=== PATIENT | male | born 1960 | race Caucasian/White ===

== ENCOUNTER 2021-06-12 14:41 | Emergency (ER) | payer BC ==
[2021-06-12] MEDS ORDERED: Sodium Chloride 0.9% 10 ML Syringe FLUSH PRN (15:02)
[2021-06-12] MEDS ORDERED: Sodium Chloride 0.9% 2.5 ML Syringe FLUSH PRN (15:02)
[2021-06-12 15:03] VITALS: BP 168/102; PULSE 116
[2021-06-12] MEDS ORDERED: Morphine 4 MG/ML Syringe IVPUSH ONE (15:07)
[2021-06-12] MEDS ORDERED: Cefepime 2 GM in Premix Bag 1 BAG IV ONE (15:20)
[2021-06-12] MEDS ORDERED: Acetaminophen 500 MG Tab PO ONE (15:21)
--- NOTE | 2021-06-12 15:26 | EDM.PDOC ---
ED HPI GENERAL MEDICAL PROBLEM - General Chief Complaint: Chest Pain Stated Complaint: CHEST PAIN Time Seen by Provider: 06/12/21 14:53 Source of Information: Reports: Patient - History of Present Illness INITIAL COMMENTS - FREE TEXT/NARRATIVE: 60-year-old male history of hypertension presents to the emergency department complaining of chest pain. It is left anterior chest and radiates down his left arm to his neck between his shoulder blades. Is been there for about 2 days in duration. Patient has had some cough. Patient denies any fever. No productive sputum. Patient states that he had an exposure to Covid in August and did test positive at one point although he was not symptomatic. He is not vaccinated. His had Covid in September. Patient denies any history of blood clots. No unilateral leg swelling. No recent travel or injury or cancer or surgery. Pain is also sharp. There are no known exacerbating or alleviating factors of his 10 out of 10 pain. Patient denies worsening pain with ambulation or with inspiration. No vomiting or diarrhea or other infectious symptoms patient states he had an angiogram about 2 years ago and he thinks it was okay. Left arm and chest Pain Score (Numeric/FACES): 10 - Related Data Allergies Allergy/AdvReac Type Severity Reaction Status Date / Time codeine Allergy migriane Verified 06/12/21 14:53 Penicillins Allergy Rash Verified 06/12/21 14:53 Home Meds: Home Meds Aspirin [Halfprin] 81 mg PO DAILY 30 Days #30 tab.ec 09/09/18 [Rx] Valsartan/Hydrochlorothiazide [Valsartan-Hctz 80-12.5 mg Tab] 1 each PO DAILY 30 Days #30 tablet 09/09/18 [Rx] atorvaSTATin [Lipitor] 20 mg PO BEDTIME 30 Days #30 tablet 09/09/18 [Rx] Levofloxacin [Levaquin] 500 mg PO DAILY #10 tablet 06/12/21 [Rx] Past Medical History HEENT History: Reports: None Cardiovascular History: Reports: High Cholesterol, Hypertension Respiratory History: Reports: None Gastrointestinal History: Reports: None Genitourinary History: Reports: None Musculoskeletal History: Reports: None Other Neuro History: Paresthesias Psychiatric History: Reports: None Endocrine/Metabolic History: Reports: None Hematologic History: Reports: None Immunologic History: Reports: None Oncologic (Cancer) History: Reports: None Dermatologic History: Reports: None - Infectious Disease History Infectious Disease History: Reports: Chicken Pox - Past Surgical History Cardiovascular Surgical History: Reports: None GI Surgical History: Reports: Cholecystectomy Social & Family History - Family History Family Medical History: No Pertinent Family History - Caffeine Use Caffeine Use: Reports: Coffee Caffeine Use Comment: 1 cup/day - Recreational Drug Use Recreational Drug Use: No ED ROS GENERAL - Review of Systems Review Of Systems: See Below Constitutional: Denies: Fever, Chills Respiratory: Reports: Shortness of Breath, Cough. Denies: Sputum Cardiovascular: Reports: Chest Pain, Lightheadedness GI/Abdominal: Reports: Other (Plus or minus abdominal pain but the focus of his complaints are in his chest). Denies: Black Stool, Bloody Stool Musculoskeletal: Reports: Neck Pain, Shoulder Pain Skin: Denies: Bruising Neurological: Reports: Other (Seizures to the left arm). Denies: Headache Hematologic/Lymphatic: Denies: Easy Bruising ED EXAM, GENERAL - Physical Exam Exam: See Below Free Text/Narrative:: CONSTITUTIONAL: well appearing in no acute distress SKIN: Warm, dry, and intact without rash HENT: Normocephalic, atraumatic, PULMONARY: clear to ausculation bilaterally. No rales, rhonchi, wheezing CARDIOVASCULAR: Cardia. No murmurs or rubs or gallops GASTROINTESTINAL: soft, nondistended, nontender NEUROLOGIC: normal speech, II-XII intact. light touch/5/5 power equal and symmetric in upper and lower extremities without deficit MUSCULOSKELETAL: no gross deformities, atraumatic PSYCHIATRIC: normal mood and affect #1 Interpretation EKG Date: 06/12/21 Time: 15:26 EKG Interpretation Comments: 112, sinus tachycardia, nonspecific ST/T findings Course - Vital Signs Text/Narrative:: Differential diagnosis: ACS, PE, aortic dissection, pneumonia, pancreatitis, pyelonephritis, other Patient presents to the emergency department as outlined above. Patient febrile with chest pain radiating to the back. Patient fortunately CT scan of the chest shows no evidence of any aortic dissection or PE but it does show some evidence of calcifications in the renal collecting system. Patient has neutropenia and with high fevers concern would be for an infected stone with impending urosepsis and deterioration. Patient at this time declines further testing and intervention. Patient will not at this time provide a urine sample and he states he will follow-up with his provider in the short-term. Later in the ED course the states the patient has had chest pain evaluated several times in the past and he has a history of anxiety. She is commenting that in her opinion she does not think the CAT scan was necessary. She states the patient's grand daughter had a viral infection recently. With this new information later in the emergency department course I still cannot exclude underlying serious infection. Patient is with leukopenia and high fever and with evidence of calcifications in the renal collecting system with back pain I certainly cannot exclude underlying serious or life-threatening infection. This was discussed with both the patient and his . Pt alert and oriented. Pt understandings risks of significant morbidity and/or mortality. Pt is able to discuss illustrating understanding. Pt has capacity to make own decisions and is signing out against medical advice. Last Recorded V/S: Last Vital Signs Temp 38.6 C H 06/12/21 15:37 Pulse 116 H 06/12/21 14:54 Resp 19 06/12/21 14:54 BP 168/102 H 06/12/21 14:54 Pulse Ox 95 06/12/21 14:54 - Orders/Labs/Meds Orders: Active Orders 24 hr Category Date Time Status Cardiac Monitoring [RC] . DIRECTED Care 06/12/21 15:02 Active EKG 12 Lead [EKG Documentation Completion] [RC] STAT Care 06/12/21 17:05 Active Pulse Oximetry [RC] ASDIRECTED Care 06/12/21 15:02 Active CULTURE BLOOD [BC] Stat Lab 06/12/21 15:14 Received CULTURE BLOOD [BC] Stat Lab 06/12/21 15:16 Received UA W/MICROSCOPIC [URIN] Stat Lab 06/12/21 17:10 Ordered Lactated Ringers [Ringers, Lactated] 2,000 ml Med 06/12/21 17:30 Active IV ASDIRECTED Sodium Chloride 0.9% [Saline Flush] Med 06/12/21 15:02 Active 10 ml FLUSH ASDIRECTED PRN Sodium Chloride 0.9% [Saline Flush] Med 06/12/21 15:02 Active 2.5 ml FLUSH ASDIRECTED PRN Blood Culture x2 Reflex Set [OM.PC] Stat Oth 06/12/21 15:03 Ordered Isolation [COMM] Routine Oth 06/12/21 15:04 Active Saline Lock Insert [OM.PC] Stat Oth 06/12/21 15:02 Ordered Medication Orders Lactated Ringer's (Ringers, Lactated) 2,000 mls @ 99,999 mls/min IV ASDIRECTED JENNIFER Sodium Chloride (Sodium Chloride 0.9% 10 Ml Syringe) 10 ml FLUSH ASDIRECTED PRN PRN Reason: Keep Vein Open Last Admin: 06/12/21 15:40 Dose: 10 ml Documented by: ARA Sodium Chloride (Sodium Chloride 0.9% 2.5 Ml Syringe) 2.5 ml FLUSH ASDIRECTED PRN PRN Reason: Keep Vein Open Last Admin: 06/12/21 15:40 Dose: 2.5 ml Documented by: ARA Labs: Laboratory Tests 06/12/21 06/12/21 06/12/21 Range/Units 14:47 14:47 14:47 WBC 2.97 L (4.0-11.0) K/uL RBC 4.92 (4.50-5.90) M/uL Hgb 15.6 (13.0-17.0) g/dL Hct 44.8 (38.0-50.0) % MCV 91.1 (80.0-98.0) fL MCH 31.7 (27.0-32.0) pg MCHC 34.8 (31.0-37.0) g/dL RDW Std Deviation 42.9 (28.0-62.0) fl RDW Coeff of Kt 13 (11.0-15.0) % Plt Count 155 (150-400) K/uL MPV 11.30 (7.40-12.00) fL Neut % (Auto) 63.3 (48.0-80.0) % Lymph % (Auto) 19.9 (16.0-40.0) % [place] % (Auto) 16.5 H (0.0-15.0) % Eos % (Auto) 0.0 (0.0-7.0) % Baso % (Auto) 0.3 (0.0-1.5) % Neut # (Auto) 1.9 (1.4-5.7) K/uL Lymph # (Auto) 0.6 (0.6-2.4) K/uL [place] # (Auto) 0.5 (0.0-0.8) K/uL Eos # (Auto) 0.0 (0.0-0.7) K/uL Baso # (Auto) 0.0 (0.0-0.1) K/uL Nucleated RBC % 0.0 /100WBC Nucleated RBCs # 0 K/uL INR D-Dimer, Quantitative 1.12 H (0.0-0.50) mg/L FEU Sodium 133 L (136-148) mmol/L Potassium 3.8 (3.5-5.1) mmol/L Chloride 98 (98-107) mmol/L Carbon Dioxide 28.1 (21.0-32.0) mmol/L BUN 11 (7.0-18.0) mg/dL Creatinine 1.3 (0.8-1.3) mg/dL Est Cr Clr Drug Dosing 69.38 mL/min Estimated GFR (MDRD) 56.1 ml/min Glucose 98 (74-106) mg/dL Lactic Acid (0.4-2.0) mmol/L Calcium 8.5 (8.5-10.1) mg/dL Total Bilirubin 1.7 H (0.2-1.0) mg/dL AST 31 (15-37) IU/L ALT 44 (14-63) IU/L Alkaline Phosphatase 109 (46-116) U/L Troponin I < 0.050 (0.000-0.056) ng/mL Total Protein 8.2 (6.4-8.2) g/dL Albumin 4.3 (3.4-5.0) g/dL Globulin 3.9 (2.6-4.0) g/dL Albumin/Globulin Ratio 1.1 (0.9-1.6) Lipase 60 L (73-393) U/L Influenza Type A RNA (NEGATIVE) Influenza Type B RNA (NEGATIVE) SARS-CoV-2 RNA ([place]) (NEGATIVE) 06/12/21 06/12/21 06/12/21 Range/Units 14:47 15:14 16:09 WBC (4.0-11.0) K/uL RBC (4.50-5.90) M/uL Hgb (13.0-17.0) g/dL Hct (38.0-50.0) % MCV (80.0-98.0) fL MCH (27.0-32.0) pg MCHC (31.0-37.0) g/dL RDW Std Deviation (28.0-62.0) fl RDW Coeff of Kt (11.0-15.0) % Plt Count (150-400) K/uL MPV (7.40-12.00) fL Neut % (Auto) (48.0-80.0) % Lymph % (Auto) (16.0-40.0) % [place] % (Auto) (0.0-15.0) % Eos % (Auto) (0.0-7.0) % Baso % (Auto) (0.0-1.5) % Neut # (Auto) (1.4-5.7) K/uL Lymph # (Auto) (0.6-2.4) K/uL [place] # (Auto) (0.0-0.8) K/uL Eos # (Auto) (0.0-0.7) K/uL Baso # (Auto) (0.0-0.1) K/uL Nucleated RBC % /100WBC Nucleated RBCs # K/uL INR 1.06 D-Dimer, Quantitative (0.0-0.50) mg/L FEU Sodium (136-148) mmol/L Potassium (3.5-5.1) mmol/L Chloride (98-107) mmol/L Carbon Dioxide (21.0-32.0) mmol/L BUN (7.0-18.0) mg/dL Creatinine (0.8-1.3) mg/dL Est Cr Clr Drug Dosing mL/min Estimated GFR (MDRD) ml/min Glucose (74-106) mg/dL Lactic Acid 1.2 (0.4-2.0) mmol/L Calcium (8.5-10.1) mg/dL Total Bilirubin (0.2-1.0) mg/dL AST (15-37) IU/L ALT (14-63) IU/L Alkaline Phosphatase (46-116) U/L Troponin I (0.000-0.056) ng/mL Total Protein (6.4-8.2) g/dL Albumin (3.4-5.0) g/dL Globulin (2.6-4.0) g/dL Albumin/Globulin Ratio (0.9-1.6) Lipase (73-393) U/L Influenza Type A RNA NEGATIVE (NEGATIVE) Influenza Type B RNA NEGATIVE (NEGATIVE) SARS-CoV-2 RNA ([place]) NEGATIVE (NEGATIVE) Meds: Medications Generic Name Dose Route Start Last Admin Trade Name Freq PRN Reason Stop Dose Admin Lactated Ringer's 2,000 mls @ 99,999 mls/min 06/12/21 17:30 Ringers, Lactated IV ASDIRECTED JENNIFER Sodium Chloride 10 ml 06/12/21 15:02 06/12/21 15:40 Sodium Chloride 0.9% 10 Ml Syringe FLUSH 10 ml ASDIRECTED PRN Administration Keep Vein Open Sodium Chloride 2.5 ml 06/12/21 15:02 06/12/21 15:40 Sodium Chloride 0.9% 2.5 Ml Syringe FLUSH 2.5 ml ASDIRECTED PRN Administration Keep Vein Open Discontinued Medications Generic Name Dose Route Start Last Admin Trade Name Freq PRN Reason Stop Dose Admin Acetaminophen 1,000 mg 06/12/21 15:21 06/12/21 15:37 Acetaminophen 500 Mg Tab PO 06/12/21 15:22 1,000 mg ONETIME ONE Administration Cefepime HCl 2 gm/ Premix 50 mls @ 100 mls/hr 06/12/21 15:20 06/12/21 15:40 IV 06/12/21 15:49 100 mls/hr ONETIME ONE Administration Lactated Ringer's 1,000 mls @ 999 mls/hr 06/12/21 15:36 06/12/21 15:38 Ringers, Lactated IV 06/12/21 16:36 999 mls/hr ONETIME ONE Administration Morphine Sulfate 4 mg 06/12/21 15:07 06/12/21 15:37 Morphine 4 Mg/Ml Syringe IVPUSH 06/12/21 15:08 4 mg ONETIME ONE Administration Departure - Departure Time of Disposition: 18:33 Disposition: Against Medical Advice 07 Condition: Fair Clinical Impression: Chest pain, Febrile illness - Discharge Information Prescriptions: Levofloxacin [Levaquin] 500 mg PO DAILY #10 tablet Referrals: Jony Luis MD [Primary Care Provider] - Forms: ED Department Discharge Additional Instructions: Return for increasing chest pain or shortness of breath or fever or lightheadedness or change or worsening condition or if you change your mind and would like to be managed and treated in the hospital. Antibiotics as prescribed to cover in the event that there is a urinary tract infection. Please take a copy of all your laboratory tests as well as CT scan to the primary care doctor soon as you can for continued treatment and evaluation. As mentioned there may be concern for kidney stones that could be infected Sepsis Event Note (ED) - Evaluation Sepsis Screening Result: Possible Sepsis Risk - Focused Exam Vital Signs: Vital Signs Temp Temp Pulse Resp BP Pulse Ox 06/12/21 15:37 38.6 C H 06/12/21 14:54 38.4 C H 116 H 19 168/102 H 95 - My Orders Last 24 Hours: My Active Orders 06/12/21 15:02 Cardiac Monitoring [RC] . DIRECTED Pulse Oximetry [RC] ASDIRECTED Sodium Chloride 0.9% [Saline Flush] 10 ml FLUSH ASDIRECTED PRN Sodium Chloride 0.9% [Saline Flush] 2.5 ml FLUSH ASDIRECTED PRN Saline Lock Insert [OM.PC] Stat 06/12/21 15:03 Blood Culture x2 Reflex Set [OM.PC] Stat 06/12/21 15:04 Isolation [COMM] Routine 06/12/21 15:14 CULTURE BLOOD [BC] Stat 06/12/21 15:16 CULTURE BLOOD [BC] Stat 06/12/21 17:05 EKG 12 Lead [EKG Documentation Completion] [RC] STAT 06/12/21 17:10 UA W/MICROSCOPIC [URIN] Stat 06/12/21 17:30 Lactated Ringers [Ringers, Lactated] 2,000 ml IV ASDIRECTED - Assessment/Plan Last 24 Hours: My Active Orders 06/12/21 15:02 Cardiac Monitoring [RC] . DIRECTED Pulse Oximetry [RC] ASDIRECTED Sodium Chloride 0.9% [Saline Flush] 10 ml FLUSH ASDIRECTED PRN Sodium Chloride 0.9% [Saline Flush] 2.5 ml FLUSH ASDIRECTED PRN Saline Lock Insert [OM.PC] Stat 06/12/21 15:03 Blood Culture x2 Reflex Set [OM.PC] Stat 06/12/21 15:04 Isolation [COMM] Routine 06/12/21 15:14 CULTURE BLOOD [BC] Stat 06/12/21 15:16 CULTURE BLOOD [BC] Stat 06/12/21 17:05 EKG 12 Lead [EKG Documentation Completion] [RC] STAT 06/12/21 17:10 UA W/MICROSCOPIC [URIN] Stat 06/12/21 17:30 Lactated Ringers [Ringers, Lactated] 2,000 ml IV ASDIRECTED
--- NOTE | 2021-06-12 15:28 | CR ---
INDICATION: Chest pain TECHNIQUE: Chest 1 view. COMPARISON: 09/07/18 FINDINGS: Cardiovascular and mediastinum: Heart size and vasculature are normal in caliber and appearance. Mediastinum is within normal limits. Lungs and pleural space: Lungs are clear. No sign of infiltrate or mass. No sign of pleural effusion. No pneumothorax. Bones and soft tissues: No significant findings. IMPRESSION: Unremarkable chest. Dictated by: Archie Celeste MD @ 06/12/2021 15:27:09 (Electronically Signed)
[2021-06-12 15:32] LABS: BLOOD UREA NITROGEN,BUN 11 mg/dL (7.0-18.0); CARBON DIOXIDE,CO2 28.1 mmol/L (21.0-32.0); CHLORIDE,CL 98 mmol/L (98-107); GLUCOSE RANDOM 98 mg/dL (74-106); LIPASE 60 U/L (73-393); POTASSIUM,K 3.8 mmol/L (3.5-5.1); SODIUM,NA 133 mmol/L (136-148)
[2021-06-12] MEDS ORDERED: Sodium Chloride 0.9% 10 ML SDV IV STA (15:34)
[2021-06-12] MEDS ORDERED: Lactated Ringers 1,000 ML IV ONE (15:36)
[2021-06-12 17:03] LABS: CORONAVIRUS COVID-19 NAA NEGATIVE (NEGATIVE); INFLUENZA A NAA NEGATIVE (NEGATIVE); INFLUENZA B NAA NEGATIVE (NEGATIVE)
--- NOTE | 2021-06-12 17:09 | CT ---
INDICATION: Pain and fatigue for few days. Rule out PE and dissection. COMPARISON: None. TECHNIQUE: CT angiography of the chest and abdomen with and without contrast dissection protocol. 100 cc IV Isovue 370. FINDINGS: The lung apices are not included in the postcontrast images. Within this limitation no filling defect to indicate acute PE. No dissection or aneurysmal dilatation of the abdominal or thoracic aorta. Ectatic ascending thoracic aorta measuring 4.0 cm in diameter. Normal 3 vessel aortic arch. Celiac, SMA, renal arteries and SRINIVAS are patent. Common iliac arteries are patent. Heart is normal size. No pericardial effusion. Mild coronary artery calcifications. No enlarged thoracic lymph nodes. No focal lung consolidation, pleural effusion or pneumothorax. Left lung calcified granuloma. Cholecystectomy. Liver, spleen, pancreas adrenal glands are unremarkable. No hydronephrosis. Bilateral renal collecting system calcifications on precontrast images. No bowel obstruction or inflammation. Multiple nonenlarged retroperitoneal lymph nodes are nonspecific. Degenerative changes in the spine. IMPRESSION: 1. No evidence of acute PE. Lung apices were not included in the postcontrast images and evaluation for PE in this area was not possible. 2. No evidence of aortic dissection or aneurysm. 3. Ectatic ascending thoracic aorta measuring 4.0 cm in diameter. 4. Bilateral renal collecting system calcifications are precontrast images are partially imaged. Please note that all CT scans at this facility use dose modulation, iterative reconstruction, and/or weight-based dosing when appropriate to reduce radiation dose to as low as reasonably achievable. Dictated by Archie Lanier MD @ 06/12/2021 5:07:[address] Archie Lanier @ Jun 12 2021 5:07PM
[2021-06-12] MEDS ORDERED: Lactated Ringers 2,000 ML IV SCH (17:30)
== END 2021-06-12 19:05 | disposition left against medical advice (07) ==
LOC: MW.ED 14:41
DX: R07.89 Other chest pain (principal); R50.9 Fever, unspecified; E78.00 Pure hypercholesterolemia, unspecified; I10 Essential (primary) hypertension; R00.0 Tachycardia, unspecified; Z79.82 Long term (current) use of aspirin; Z79.899 Other long term (current) drug therapy; Z88.5 Allergy status to narcotic agent; Z88.0 Allergy status to penicillin; Z20.822 Contact with and (suspected) exposure to COVID-19
CPT/HCPCS: 0240U; 36415; 71045; 71275; 74175; 74177; 80053; 83605; 83690; 84484; 85025; 85379; 85610; 87040; 93005; 96365; 96375; 99285; A9270; J0692; J2270; J7120; 93010; 99284

== ENCOUNTER 2023-08-20 01:49 | Emergency (ER) | payer BC ==
[2023-08-20] MEDS ORDERED: Lidocaine/Epineph/Tetracaine 3 ML Syringe TOP ONE (01:51)
[2023-08-20 01:59] LABS: BASOPHILS ABSOLUTE AUTO 0.03 K/uL (0.00-0.20); BASOPHILS PERCENT AUTO 0.5 % (0.0-1.0); EOSINOPHILS ABSOLUTE AUTO 0.11 K/uL (0.00-0.45); HEMATOCRIT 42.5 % (42.0-52.0); HEMOGLOBIN 14.6 g/dL (14.0-18.0); LYMPHOCYTES ABSOLUTE AUTO 2.59 K/uL (1.00-4.80); LYMPHOCYTES PERCENT AUTO 46.1 % (24.0-44.0); MEAN CORPUSCULAR HEMOGLOBIN 31.2 pg (28.0-32.0); MEAN CORPUSCULAR HGB CONC 34.4 g/dL (32.0-36.0); MEAN CORPUSCULAR VOLUME 90.8 fL (83.0-99.0); MEAN PLATELET VOLUME 10.6 fL (9.4-12.4); MONOCYTES ABSOLUTE AUTO 0.34 K/uL (0.00-0.80); NEUTROPHILS ABSOLUTE AUTO 2.5 K/uL (1.8-7.7); NEUTROPHILS PERCENT AUTO 44.5 % (41.0-71.0); PLATELET COUNT,PLT 184 K/uL (150-400); RED BLOOD CELL COUNT 4.68 M/uL (4.52-5.90); WHITE BLOOD CELL COUNT,WBC 5.62 K/uL (3.9-11.3)
[2023-08-20 02:38] LABS: A/G RATIO 1.1 (0.9-1.6); ALBUMIN 3.8 g/dL (3.4-5.0); BILIRUBIN TOTAL 0.7 mg/dL (0.2-1.0); CALCIUM 8.5 mg/dL (8.5-10.1); CARBON DIOXIDE,CO2 29.5 mmol/L (21.0-32.0); CREATININE 1.2 mg/dL (0.8-1.3); EST CRCL DRUG DOSING (CG) 73.26 mL/min; MAGNESIUM 2.1 mg/dL (1.8-2.4); POTASSIUM,K 3.9 mmol/L (3.5-5.1); PROTEIN TOTAL,TP 7.3 g/dL (6.4-8.2); TSH ULTRASENSITIVE 3.09 uIU/mL (0.36-3.74)
[2023-08-20] MEDS: Acetaminophen 325 MG Tab PO ONE ×2 (02:39→02:42)
[2023-08-20] MEDS ORDERED: Ondansetron 4 MG/2 ML SDV IVPUSH ONE (04:20)
[2023-08-20 05:40] VITALS: BP 138/88; PULSE 80
== END 2023-08-20 06:20 ==
LOC: MW.ED 01:49
DX: S06.309A Unspecified focal traumatic brain injury with loss of consciousness of unspecified duration, initial encounter (principal); S02.19XA Other fracture of base of skull, initial encounter for closed fracture; S02.119A Unspecified fracture of occiput, initial encounter for closed fracture; I10 Essential (primary) hypertension; E78.00 Pure hypercholesterolemia, unspecified; Z88.5 Allergy status to narcotic agent; Z88.0 Allergy status to penicillin; Z79.82 Long term (current) use of aspirin; Z79.899 Other long term (current) drug therapy; W18.30XA Fall on same level, unspecified, initial encounter
CPT/HCPCS: 36415; 70450; 72125; 80053; 80307; 83735; 84443; 84484; 85025; 93005; 96374; 99285; A9270; J2405; 93010; 99284